=== PATIENT | female | born 1975 | race Caucasian/White ===

== ENCOUNTER 2016-12-14 10:39 | Outpatient (CLI) | payer OTHER ==
--- NOTE | 2016-12-14 12:52 | ULT ---
PELVIS SONOGRAM: HISTORY: Pelvic pain. TECHNIQUE: Transabdominal and transvaginal imaging with duplex evaluation. FINDINGS: The urinary bladder is unremarkable. The uterus has a homogeneous echotexture and is 9.1 cm in mally th. The endometrium is 0.4 cm in thickness. No free fluid is apparent within the pelvis. The righ t ovary is 2.9 cm in length and the left is 2.4 cm. Each contains follicles and has a normal appear ance, with good color and spectral Doppler flow. IMPRESSION: Normal pelvic sonogram. POS: [facility]
== END 2016-12-14 10:40 | disposition home or self-care (01) ==
LOC: ULT 10:39
DX: R10.2 Pelvic and perineal pain (principal)
CPT/HCPCS: 76856

== ENCOUNTER 2017-02-21 11:53 | Outpatient (CLI) | payer OTHER ==
--- NOTE | 2017-02-21 13:48 | MMO ---
BILATERAL SCREENING MAMMOGRAM: Comparison: None. Baseline mammogram. History: 42-year-old female, screening mammogram. Technique: CC and MLO views of both breasts submitted for interpretation. This study is interpreted with the assistance of computer aided detection. FINDINGS: There are scattered fibroglandular tissues. Bilaterally, no predominant mass, architectural distortio n, or suspicious ossification. IMPRESSION: BIRADS category 2 - benign findings. RECOMMENDATION: Annual mammogram. POS: [facility]
== END 2017-02-21 11:54 | disposition home or self-care (01) ==
LOC: SCSMAMMO 11:53
PROVIDERS: ATTEND Internal Medicine
DX: Z12.31 Encounter for screening mammogram for malignant neoplasm of breast (principal)
CPT/HCPCS: 77067; G0202

== ENCOUNTER 2021-04-07 10:40 | Outpatient (CLI) | payer OTHER | END 2021-04-07 10:41 | disposition home or self-care (01) | LOC: BICMAMMO 10:40 | PROVIDERS: ATTEND Internal Medicine | DX: Z12.31 Encounter for screening mammogram for malignant neoplasm of breast (principal) | CPT/HCPCS: 77063; 77067 ==

== ENCOUNTER 2022-07-22 10:13 | Outpatient (CLI) | payer OTHER | END 2022-07-22 10:14 | disposition home or self-care (01) | LOC: BICMAMMO 10:13 | PROVIDERS: ATTEND Internal Medicine | DX: Z12.31 Encounter for screening mammogram for malignant neoplasm of breast (principal) | CPT/HCPCS: 77063; 77067 ==